=== PATIENT | male | born 1995 | race Two or more races ===

== ENCOUNTER 2021-09-06 22:32 | Emergency (ER) | payer MEDICAID ==
[~2021-09-06] VITALS: Ht 180.3 cm; Wt 61.2 kg
[2021-09-06 22:40] VITALS: BP 121/69
[2021-09-06] MEDS ORDERED: IBUPROFEN 400 MG TABLET ONE ×2 (22:53→22:56)
--- NOTE | 2021-09-06 22:54 | NUR ---
RADIOLOGY AT BEDSIDE FOR XRAY
[2021-09-06] MEDS ORDERED: IBUPROFEN 400 MG TABLET PO ONE (23:00)
--- NOTE | 2021-09-06 23:56 | NUR ---
Patient discharged to home in stable condition. Written and verbal after care instructions given. Patient verbalizes understanding of instruction.
== END 2021-09-06 23:59 | disposition home or self-care (01) ==
LOC: ER 22:36
DX: S92.524A Nondisplaced fracture of middle phalanx of right lesser toe(s), initial encounter for closed fracture (principal); W22.8XXA Striking against or struck by other objects, initial encounter; Y93.89 Activity, other specified; Y92.89 Other specified places as the place of occurrence of the external cause; Y99.8 Other external cause status
CPT/HCPCS: 73660-TC